=== PATIENT | female | born 1965 | race Caucasian/White ===

== ENCOUNTER → 2020-09-20 | Outpatient (CLI) | payer BC ==
[2020-09-20 09:28] LABS: BUN/CREATININE RATIO 16 (0-10)
[2020-09-21 09:14] LABS: VITAMIN D, 25-HYDROXY 38.4 ng/mL (30.0-100.0)
== END ==
LOC: LAB 08:16
PROVIDERS: Internal Medicine Endocrinology, Diabetes & Metabolism
DX: E89.0 Postprocedural hypothyroidism (principal); E55.9 Vitamin D deficiency, unspecified
CPT/HCPCS: 36415; 80048; 84439; 84443; 84481

== ENCOUNTER → 2021-09-06 | Outpatient (CLI) | payer BC ==
[2021-09-06 09:50] LABS: BUN/CREATININE RATIO 18 (0-10)
[2021-09-07 08:12] LABS: THYROXINE (T4) 11.8 ug/dL (4.5-12.0); VITAMIN D, 25-HYDROXY 51.2 ng/mL (30.0-100.0)
== END ==
LOC: LAB 08:55
PROVIDERS: Internal Medicine Endocrinology, Diabetes & Metabolism
DX: E89.0 Postprocedural hypothyroidism (principal); E55.9 Vitamin D deficiency, unspecified
CPT/HCPCS: 36415; 80048; 84436; 84439; 84443; 84481